=== PATIENT | female | born 1990 | race African-American/Black ===

== ENCOUNTER 2023-01-24 00:15 | Inpatient (IN) | payer OTHER ==
[~2023-01-24] VITALS: Ht 157.5 cm; Wt 68.5 kg
[2023-01-24] MEDS ORDERED: ONDANSETRON HCL 4MG/2ML INJ IV ONE (00:30)
[2023-01-24] MEDS ORDERED: SODIUM CHLORIDE 0.9% 1,000 ML IV ONE (00:30)
[2023-01-24] MEDS ORDERED: FAMOTIDINE 20MG/2ML VIAL IV ONE (00:30)
[2023-01-24 01:07] LABS: BASOPHILS % 0.3 % (0.0-2.0); EOSINOPHILS % 0.5 % (0.0-5.0); HEMATOCRIT. 40.4 % (36.0-48.0); HEMOGLOBIN. 13.7 g/dL (12.0-16.0); LYMPHOCYTES % 10.9 % (20.0-50.0); MEAN CORPUSCULAR HEMOGLOBIN 30.2 pg (28.0-32.0); MEAN CORPUSCULAR VOLUME 89.1 fL (81.0-99.0); MEAN PLATELET VOLUME 7.4 fl (7.4-10.4); NEUTROPHILS % 85.3 % (40.0-76.0); PLATELET 505 x1000/uL (130-400); RED BLOOD CELL COUNT 4.54 mill/uL (4.2-5.4); RED CELL DISTRIBUTION WIDTH 14.1 % (11.6-14.6)
[2023-01-24 01:08] LABS: CHLORIDE 104 mEq/L (98-107)
[2023-01-24 01:30] LABS: B-HCG QUANTITATIVE 43752 mIU/mL (<3); BETA HYDROXYBUTYRATE 0.9 mMol/L (0.0-0.3); T4 FREE 1.46 ng/dL (0.76-1.46)
[2023-01-24] MEDS ORDERED: FAMOTIDINE 20MG/2ML VIAL IV NR (02:30)
[2023-01-24] MEDS ORDERED: ONDANSETRON HCL 4MG/2ML INJ IV NR (02:30)
[2023-01-24] MEDS ORDERED: METOCLOPRAMIDE HCL 10MG/2ML VIAL IV ONE (05:30)
[2023-01-24] MEDS ORDERED: DEXT 5%/0.9% NACL 1,000 ML IV ONE (05:30)
[2023-01-24 08:00] VITALS: BP 113/59
[2023-01-24 10:24] VITALS: BP 113/59
[2023-01-24 12:00] VITALS: BP 112/59
[2023-01-24] MEDS: METOCLOPRAMIDE HCL 10MG/2ML VIAL IV SCH ×2 (12:06→17:56)
[2023-01-24 16:00] VITALS: BP 110/53
[2023-01-24 20:00] VITALS: BP 114/59
[2023-01-24] MEDS: PROPYLTHIOURACIL 50MG TABLET PO SCH (21:36)
[2023-01-24] MEDS: ONDANSETRON HCL 4MG/2ML INJ IV PRN (21:37)
[2023-01-24 23:22] VITALS: BP 133/53
[2023-01-25] MEDS: METOCLOPRAMIDE HCL 10MG/2ML VIAL IV SCH ×3 (00:35→11:47)
[2023-01-25] MEDS ORDERED: DEXT 5%/0.45% NACL KCL 20MEQ/L 1,000 ML IV SCH (02:00)
[2023-01-25 04:00] VITALS: BP 134/53
[2023-01-25] MEDS: ONDANSETRON HCL 4MG/2ML INJ IV PRN ×2 (04:03→09:33)
[2023-01-25 07:00] LABS: BASOPHILS % 0.7 % (0.0-2.0); EOSINOPHILS % 0.9 % (0.0-5.0); HEMATOCRIT. 36.1 % (36.0-48.0); HEMOGLOBIN. 12.6 g/dL (12.0-16.0); LYMPHOCYTES % 23.9 % (20.0-50.0); MEAN CORPUSCULAR HEMOGLOBIN 31.3 pg (28.0-32.0); MEAN CORPUSCULAR VOLUME 89.3 fL (81.0-99.0); MEAN PLATELET VOLUME 7.4 fl (7.4-10.4); MONOCYTES % 7.4 % (2.0-8.0); NEUTROPHILS % 67.1 % (40.0-76.0); PLATELET 371 x1000/uL (130-400); RED BLOOD CELL COUNT 4.04 mill/uL (4.2-5.4); RED CELL DISTRIBUTION WIDTH 14.1 % (11.6-14.6)
[2023-01-25 08:00] VITALS: BP 143/60
[2023-01-25] MEDS: PROPYLTHIOURACIL 50MG TABLET PO SCH (09:00)
[2023-01-25] MEDS ORDERED: FAMOTIDINE 20MG/2ML VIAL IV SCH (09:00)
[2023-01-25 11:17] VITALS: BP 143/60
== END 2023-01-25 12:47 | disposition home or self-care (01) | DRG 833 ==
LOC: ER 00:15 → 6EST 05:20
PROVIDERS: ADMIT Internal Medicine; ATTEND Internal Medicine
DX: O21.0 Mild hyperemesis gravidarum (principal); O99.281 Endocrine, nutritional and metabolic diseases complicating pregnancy, first trimester; Z3A.01 Less than 8 weeks gestation of pregnancy; Z87.891 Personal history of nicotine dependence
CPT/HCPCS: 36415; 76801; 80053; 82010; 82962; 84439; 84443; 84480; 84481; 84702; 85025; 99285; J2405; J2765; J3490; J7030; J7042